=== PATIENT | male | born 1985 | race Caucasian/White ===

== ENCOUNTER 2017-08-16 13:00 | Emergency (ER) | payer BC | END 2017-08-16 18:00 | disposition home or self-care (01) | LOC: D.ER 13:00 | DX: S29.012A Strain of muscle and tendon of back wall of thorax, initial encounter (principal); X50.0XXA Overexertion from strenuous movement or load, initial encounter; Y93.89 Activity, other specified; Y92.89 Other specified places as the place of occurrence of the external cause ==

== ENCOUNTER 2019-03-18 17:17 | Emergency (ER) | payer SELFPAY ==
[~2019-03-18] VITALS: Ht 175.3 cm; Wt 86.4 kg
[2019-03-18 17:24] VITALS: Ht 175.3 cm; Wt 86.4 kg
[2019-03-18] MEDS ORDERED: CYCLOBENZAPRINE5 MG PO (17:56)
[2019-03-18] MEDS ORDERED: DICLOFENAC SODI50 MG PO (17:56)
[2019-03-18 18:37] VITALS: BP 142/99
== END 2019-03-18 18:37 | disposition home or self-care (01) ==
LOC: D.ER 17:17
DX: M54.5 Low back pain (principal); M79.18 Myalgia, other site; W19.XXXA Unspecified fall, initial encounter; Y93.9 Activity, unspecified; Y92.9 Unspecified place or not applicable